=== PATIENT | female | born 1930 | race Caucasian/White ===

== ENCOUNTER 2016-11-04 23:07 | Emergency (ER) | payer MEDICARE, OTHER ==
--- NOTE | 2016-11-04 23:24 | EDM.PDOC ---
ED HPI GENERAL MEDICAL PROBLEM - General Chief Complaint: General Stated Complaint: fall, unable to bare wt to LLE Time Seen by Provider: 11/04/16 23:15 Source of Information: Reports: Patient, EMS, Family (Daughter), shelter records. 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 She apparently fell on her left side onto her wheelchair at about 19:00 hours in the residential with 1000 mg of Tylenol given at that time. She has had progressive left hip and leg pain at that time and has had more problems with weightbearing since the above fall, which was unwitnessed. 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 No recent surgery as below and secondary recent residential placement. There has been some postoperative left leg swelling, however the patient is currently on Lovenox Onset: today, sudden Onset Date: 11/04/16 Onset Time: 19:00 Duration: Constant Location: Reports: lower extremity, left. 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 (As above) - Related Data Allergies Allergy/AdvReac Type Severity Reaction Status Date / Time No Known Allergies Allergy Verified 11/04/16 23:11 Home Meds: Home Meds Acetaminophen [Tylenol Extra Strength] 1,000 mg PO TID PRN 11/04/16 [History] Aspirin [Halfprin] 81 mg PO BRK 11/04/16 [History] Calcium Carbonate 1,000 mg PO BID 11/04/16 [History] Cholecalciferol (Vitamin D3) [Vitamin D3] 2,000 unit PO DAILY 11/04/16 [History] Cranberry Conc/C/Bacill Coag [Cranberry Tablet] 1 tab PO DAILY 11/04/16 [History ] Enoxaparin Sodium 40 mg SQ DAILY 11/04/16 [History] Melatonin/Pyridoxine HCl (B6) [Melatonin 3 mg Tablet] 6 mg PO BEDTIME 11/04/16 [ History] Multivitamin with Minerals [Multivitamins with Minerals] 1 each PO DAILY [History] Polyethylene Glycol 3350 [MiraLAX] 17 gm PO DAILY 11/04/16 [History] Sertraline HCl [Zoloft] 125 mg PO DAILY 11/04/16 [History] Sulfamethoxazole/Trimethoprim [Bactrim 400-80 MG] 1 tab PO DAILY 11/04/16 [ History] atorvaSTATin Calcium [Atorvastatin Calcium] 10 mg PO BEDTIME 11/04/16 [History] traMADol [Ultram] 50 mg PO Q6H PRN 11/04/16 [History] traZODone HCl [Trazodone HCl] 25 mg PO BEDTIME 11/04/16 [History] Past Medical History HEENT History: Reports: Impaired vision, Other (see below). Denies: Allergic rhinitis, Cataract, Glaucoma, Hard of hearing, Macular degeneration, Retinal detachment Other HEENT History: Wears glasses Cardiovascular History: Reports: High cholesterol, Syncope. Denies: Afib, Aneurysm, Arrhythmia, Blood clots/VTE/DVT, CAD, Heart Failure, Heart murmur, Hypertension, FL, Pacemaker, PVD Respiratory History: Reports: Intubation, previous. Denies: Asthma, COPD, PE, Pneumothorax, Sleep apnea Gastrointestinal History: Reports: Chronic constipation. Denies: Celiac disease , Colon polyp, Diverticulosis, Gastritis, GERD, GI bleed, Hepatitis, Hiatal hernia, Inflammatory bowel disease, Irritable bowel syndrome, Jaundice, Pancreatitis Genitourinary History: Reports: UTI, recurrent, Other (see below). 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 Denies: Gout, Neck pain, chronic, RA, SLE Other Musculoskeletal History: Left hip fracture on 10/27/16 with surgery as below Neurological History: Reports: Alzheimers disease, CVA, Other (see below). Denies: Cerebral aneurysms, Concussion, Headaches, chronic, Head trauma, Migraines, MS, Parkinson's, Seizure Other Neuro History: Severe organic brain syndrome, previous lacunar CVA Psychiatric History: Reports: Alzheimers disease, Anxiety, Dementia, Depression , Other (see below). Denies: Abuse, victim of, ADD, ADHD, Psych Hospitalization (s), PTSD, Suicide attempt Other Psychiatric History: Chronic insomnia Endocrine/Metabolic History: Reports: Obesity/BMI 30+. Denies: Diabetes, type I , Diabetes, type II, Hypothyroidism, IDDM Hematologic History: Denies: Anemia, Blood transfusion(s), Iron deficiency Immunologic History: Reports: None. Denies: AIDS, HIV, SLE Oncologic (Cancer) History: Reports: Basal cell carcinoma, Other (see below). Denies: Hodgkin's Lymphoma, Leukemia, Lymphoma, Malignant melanoma, Non-Hodgkin' s Lymphoma, Squamous cell carcinoma Other Oncologic History: Possible basal cell carcinoma in the facial region versus actinic keratosis Dermatologic History: Reports: Other (see below) Other Dermatologic History: Actinic keratosis - Infectious Disease History Infectious Disease History: Reports: Chicken pox, Measles, Mumps. Denies: C- difficile, MRSA, VRE - Past Surgical History Head Surgeries/Procedures: Reports: None HEENT Surgical History: Reports: Oral surgery, Other (see below). Denies: Adenoidectomy, Cataract surgery, Eye surgery, Laser surgery, LASIK, Naso-sinus surgery, Tonsillectomy Other HEENT Surgeries/Procedures: Multiple teeth extraction Cardiovascular Surgical History: Reports: None. Denies: Varicose Respiratory Surgical History: Reports: None. Denies: Thoracentesis GI Surgical History: Reports: None. Denies: Appendectomy, Cholecystectomy, Colonoscopy, EGD, Hernia, abdominal, Hernia, inguinal, Hernia repair/other Female Surgical History: Reports: None. Denies: Breast biopsy, D&C, Hysterectomy, Tubal ligation Endocrine Surgical History: Reports: None. Denies: Thyroid biopsy Neurological Surgical History: Reports: None. Denies: C-Spine, Laminectomy, Lumbar spine, Sacral Spine, Spinal fusion, Vertebroplasty Musculoskeletal Surgical History: Reports: Hip replacement, Knee replacement, Other (see below). Denies: Arthroscopic procedure, Carpal tunnel, Ganglion cyst , ORIF Other Musculoskeletal Surgeries/Procedures:: Bilateral TKA, left hip hemiarthroplasty on 10/27/16 Oncologic Surgical History: Reports: None Dermatological Surgical History: Reports: Other (see below) Other Dermatological Surgeries/Procedures: Excision of possible facial basal cell carcinomas as above Social & Family History - Tobacco Use Smoking Status *Q: Never Smoker Smoking Cessation Information Provided To Patient: No Second Hand Smoke Exposure: No Second Hand Smoke Education Provided: No - Alcohol Use Alcohol Use History: No - Recreational Drug Use Recreational Drug Use: No Drug Use in Last 12 Months: No Recreational Drug Type: Denies: Amphetamines (Speed), Cocaine, Heroin, LSD (Acid ), Marijuana/Hashish, Morphine - Living Situation & Occupation Living situation: Reports: (07/22/12, 7 children), extended care facility ([facility] in [place] her left hip surgery with admission on ) ED ROS GENERAL - Review of Systems Review Of Systems: Unable To Obtain ED EXAM, GENERAL - Physical Exam Exam: See Below Exam Limited By: No limitations General Appearance: alert, WD/WN, no apparent distress Eye Exam: bilateral eye: EOMI, normal inspection (No nystagmus), PERRL Ears: normal external exam, normal canal, hearing grossly normal, normal TMs Nose: normal inspection, normal mucosa, no blood Throat/Mouth: Normal inspection, Normal lips, Normal gums, Normal oropharynx, Normal voice, No airway compromise. No: Normal teeth (Multiple Missing teeth), Dysphagia, Perioral cyanosis Head: atraumatic, normocephalic. No: facial swelling, facial tenderness Neck: normal inspection, supple, non-tender, full range of motion, carotid bruit (Mild Bilateral carotid bruits versus transmitted heart sounds). No: lymphadenopathy (L), lymphadenopathy (R), thyromegaly Respiratory/Chest: no respiratory distress, lungs clear, normal breath sounds, no accessory muscle use, chest non-tender. No: pleural rub, retractions Cardiovascular: normal peripheral pulses, regular rate, rhythm, no edema, no gallop, no JVD, no rub, systolic murmur (1/6 JAMIL at the aortic valve). No: gallop/S3, gallop/S4, friction rub Peripheral Pulses: 4+: radial (L), radial (R), dorsalis pedis (L), dorsalis pedis (R) GI/Abdominal: normal bowel sounds, soft, non tender, no organomegaly, no distention, no abnormal bruit, no mass. No: guarding (Female) Exam: Deferred Rectal (Female) Exam: Deferred Back Exam: normal inspection, full range of motion. No: CVA tenderness (L), CVA tenderness (R), muscle spasm Extremities: normal inspection, normal capillary refill, pedal edema (Trace bilateral pedal/pretibial edema), leg pain, limited range of motion (Mild palpation of the left hip with similar discomfort with range of motion, chary still in place at left hip surgical site with no signs of dehiscence or local signs of infection). No: Jackie's Sign Neurological: alert, normal reflexes (Negative Babinski's), confused (Stable confusion by her daughter's history) Psychiatric: anxious (Mild to moderate). No: depressed mood Skin Exam: Warm, Dry, No rash, Ecchymosis (Normal Postoperative ecchymosis around the left hip surgical site), Wound/incision (As above). No: Lymphangitis Lymphatic: no adenopathy Course - Vital Signs Last Recorded V/S: Last Vital Signs Temp 37.2 C 11/04/16 23:31 Pulse 87 11/04/16 23:31 Resp 20 11/04/16 23:31 BP 127/57 L 11/04/16 23:31 Pulse Ox 94 L 11/04/16 23:31 Vital Signs - 24 hr 11/04/16 23:31 Temperature [ 37.2 C Temporal] Pulse, 87 Peripheral [ Right Pulse Oximetry] Respiratory 20 Rate Blood Pressure 127/57 L [Right Upper Arm] O2 Sat by Pulse 94 L Oximetry - Orders/Labs/Meds Orders: Active Orders 24 hr Category Date Time Status Hip Min 2V or 3V w Pelvis Lt [CR] Stat Exams 11/04/16 23:35 Taken Obtain Past Medical Record [OM.PC] Routine Oth 11/04/16 23:24 Active Labs: None Meds: None - Radiology Interpretation Free Text/Narrative:: X-rays of the left hip, 2 views, with additional one view of the pelvis shows mild bilateral coxarthrosis with status post left hip hemiarthroplasty with no evidence of fracture, loosening, etc. 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 Maintain strict fall precautions as before 2. Update regular provider in the a.m. concerning patient's condition. Note that her daughter is requesting review of her current medical therapy and plans to call him later in that day 3. BenGay or equivalent, heating pad, and/or ice packs as directed. - Problem List & Annotations (1) Contusion SNOMED Code(s): 227651669 Code(s): T14.8 - OTHER INJURY OF UNSPECIFIED BODY REGION Status: Acute Priority: High Current Visit: Yes Onset Date: 11/04/16 Annotation/Comment: : Mild left hip contusion from a minor fall with no evidence of further injury to her recent left hip hemiarthroplasty. Continue physical therapy as before. The patient's daughter is somewhat concerned about her current medical therapy and will discuss this further with the patient's new primary care provider. Continue strict fall precautions Qualifiers: Encounter type: initial encounter Contusion area: hip Laterality: left Qualified Code(s): S70.02XA - Contusion of left hip, initial encounter (2) Osteoarthritis SNOMED Code(s): 606914112 Code(s): M19.90 - UNSPECIFIED OSTEOARTHRITIS, UNSPECIFIED SITE Status: Chronic Priority: Medium Current Visit: Yes Annotation/Comment:: Otherwise stable by history Qualifiers: Osteoarthritis location: multiple joints Osteoarthritis type: primary Qualified Code(s): M15.0 - Primary generalized (osteo)arthritis (3) Organic brain syndrome SNOMED Code(s): 8537104 Code(s): F09 - UNSP MENTAL DISORDER DUE TO KNOWN PHYSIOLOGICAL CONDITION Status: Chronic Priority: Medium Current Visit: Yes Annotation/Comment:: Stable by patient history (4) Hyperlipidemia SNOMED Code(s): 74631210 Code(s): E78.5 - HYPERLIPIDEMIA, UNSPECIFIED Status: Chronic Priority: Medium Current Visit: Yes Annotation/Comment:: Currently under therapy Qualifiers: Hyperlipidemia type: unspecified Qualified Code(s): E78.5 - Hyperlipidemia , unspecified (5) Mixed anxiety depressive disorder SNOMED Code(s): 595300718 Code(s): F41.8 - OTHER SPECIFIED ANXIETY DISORDERS Status: Chronic Priority: Medium Current Visit: Yes Annotation/Comment:: Moderate control based on today's exam. Observe closely by her regular provider - Problem List Review Problem List Initiated/Reviewed/Updated: Yes - My Orders Last 24 Hours: My Active Orders 11/04/16 23:24 Obtain Past Medical Record [OM.PC] Routine 11/04/16 23:35 Hip Min 2V or 3V w Pelvis Lt [CR] Stat - Assessment/Plan Last 24 Hours: My Active Orders 11/04/16 23:24 Obtain Past Medical Record [OM.PC] Routine 11/04/16 23:35 Hip Min 2V or 3V w Pelvis Lt [CR] Stat Assessment:: As above Plan: As above. Extensive precautions were given to the patient's daughter, who is in agreement with the treatment plan. See Patient Instructions for further treatment and plan.
[2016-11-04 23:42] VITALS: BP 127/57
== END 2016-11-05 01:25 ==
LOC: LL.ED 23:07
DX: S70.02XA Contusion of left hip, initial encounter (principal); Z79.82 Long term (current) use of aspirin; Z79.899 Other long term (current) drug therapy; R78.5 Finding of other psychotropic drug in blood; K59.00 Constipation, unspecified; M15.0 Primary generalized (osteo)arthritis; G30.9 Alzheimer's disease, unspecified; F02.80 Dementia in other diseases classified elsewhere, unspecified severity, without behavioral disturbance, psychotic disturbance, mood disturbance, and anxiety; Z86.73 Personal history of transient ischemic attack (TIA), and cerebral infarction without residual deficits; F41.8 Other specified anxiety disorders; G47.00 Insomnia, unspecified; E66.9 Obesity, unspecified; Z68.30 Body mass index [BMI] 30.0-30.9, adult; Z96.649 Presence of unspecified artificial hip joint; Z96.659 Presence of unspecified artificial knee joint; W05.0XXA Fall from non-moving wheelchair, initial encounter; E78.5 Hyperlipidemia, unspecified; F09 Unspecified mental disorder due to known physiological condition
CPT/HCPCS: 99283; 99285

== ENCOUNTER 2016-11-22 06:24 | Emergency (ER) | payer MEDICARE, OTHER ==
--- NOTE | 2016-11-22 06:44 | EDM.PDOC ---
ED HPI Trauma - General Chief Complaint: Lower Extremity Injury/Pain Stated Complaint: left hip pain Time Seen by Provider: 11/22/16 06:40 Source: Reports: Patient, Family (Daughter), long term records, Old records ( [facility] EMR. No paper hospital chart available.) History Limitations: Reports: Altered mental status - History of Present Illness INITIAL COMMENTS - FREE TEXT/NARRATIVE: The patient was brought to the emergency room via ambulance with disability examiner accompaniment with no treatment in route. Per limited prison records the patient had a minor fall in the dining room at about 21:10 hours with no significant complaints at that time. Patient was given 650 mg of Tylenol at 19: 18 hours yesterday evening with additional 50 mg of Ultram given at 21:00 hours. She apparently did not complain of any discomfort until about 04:50 a.m. this morning with one episode of projectile emesis at that time. She was given 50 mg of tramadol at 05:27 hours. She has been experiencing some nonspecific burping sensation but no further emesis, abdominal pain, etc.. No apparent previous significant head injury, loss of conscious, change in mental status, neck/back pain, or other complaints or injury. Note this patient is a poor historian secondary to her baseline organic brain syndrome. No apparent problems yesterday evening at supper. Last Lovenox dose at 8 a.m. yesterday morning. Physical Therapy has apparently been progressing well with no recent chest pain, anginal complaints, etc. The patient also has not had any recent fever, cough, wheezing, dyspnea, etc.. Symptom Onset Date: 11/21/16 Symptom Onset Time: 21:10 Occurred When: this evening Occurred Where: other (long term) Method of Injury: fall Severity: moderate Pain/Injury Location: Reports: lower extremity, left. Denies: head, face, mouth , neck, chest, abdomen, pelvis, back, upper extremity, right, upper extremity, left, lower extremity, right Consciousness: Reports: no loss of consciousness Associated Symptoms: Reports: confusion (Stable baseline severe), nausea/ vomiting, trouble walking. Denies: abdominal pain, chest pain, dizziness, seizures, shortness of breath Allergies/ADRs: Allergies No Known Allergies Allergy (Verified 11/22/16 06:34) Home Medications: Ambulatory Orders Aspirin [Halfprin] 81 mg PO BRK 11/04/16 [Confirmed 11/22/16] Calcium Carbonate 1,000 mg PO BID 11/04/16 [Confirmed 11/22/16] Cranberry Conc/C/Bacill Coag [Cranberry Tablet] 1 tab PO DAILY 11/04/16 [ Confirmed 11/22/16] Enoxaparin Sodium 40 mg SQ DAILY 11/04/16 [Confirmed 11/22/16] Melatonin/Pyridoxine HCl (B6) [Melatonin 3 mg Tablet] 6 mg PO BEDTIME 11/04/16 [ Confirmed 11/22/16] Multivitamin with Minerals [Multivitamins with Minerals] 1 each PO DAILY [Confirmed 11/22/16] Polyethylene Glycol 3350 [MiraLAX] 17 gm PO DAILY 11/04/16 [Confirmed 11/22/16] Sertraline HCl [Zoloft] 125 mg PO DAILY 11/04/16 [Confirmed 11/22/16] Sulfamethoxazole/Trimethoprim [Bactrim 400-80 MG] 1 tab PO DAILY 11/04/16 [ Confirmed 11/22/16] atorvaSTATin Calcium [Atorvastatin Calcium] 10 mg PO BEDTIME 11/04/16 [ Confirmed 11/22/16] traMADol [Ultram] 50 mg PO Q6H PRN 11/04/16 [Confirmed 11/22/16] traZODone HCl [Trazodone HCl] 25 mg PO BEDTIME 11/04/16 [Confirmed 11/22/16] Acetaminophen 650 mg PO Q4H PRN 11/22/16 [Confirmed 11/22/16] Acetaminophen 650 mg PO TID 11/22/16 [Confirmed 11/22/16] Bisacodyl [Dulcolax] 10 mg PO DAILY PRN 11/22/16 [Confirmed 11/22/16] Bisacodyl [Dulcolax] 10 mg RECTAL DAILY 11/22/16 [Confirmed 11/22/16] Methyl Salicylate/Menthol [Muscle Rub] 1 applic TOP ASDIRECTED PRN 11/22/16 [ Confirmed 11/22/16] Past Medical History HEENT History: Reports: Impaired vision, Other (see below). Denies: Allergic rhinitis, Cataract, Glaucoma, Hard of hearing, Macular degeneration, Retinal detachment Other HEENT History: Wears glasses Cardiovascular History: Reports: High cholesterol, Syncope. Denies: Afib, Aneurysm, Arrhythmia, Blood clots/VTE/DVT, CAD, Heart Failure, Heart murmur, Hypertension, [place], Pacemaker, PVD Respiratory History: Reports: Intubation, previous. Denies: Asthma, COPD, PE, Pneumothorax, Sleep apnea Gastrointestinal History: Reports: Chronic constipation. Denies: Celiac disease , Colon polyp, Diverticulosis, Gastritis, GERD, GI bleed, Hepatitis, Hiatal hernia, Inflammatory bowel disease, Irritable bowel syndrome, Jaundice, Pancreatitis Genitourinary History: Reports: UTI, recurrent, Other (see below). Denies: Chronic renal insuffiency, Renal calculus, STD, Urinary incontinence Other Genitourinary History: Recurrent UTIs with current antibiotic uroprophylaxis SPOON MAKER History: Reports: , Spontaneous : 8 Para: 7 (Full term without complications during pregnancies or deliveries) Other OB/BYN History: Menopause in her 50s, SAB in first trimester without procedures required Musculoskeletal History: Reports: Arthritis, Back pain, chronic, Fracture, Osteoarthritis, Other (see below). Denies: Gout, Neck pain, chronic, RA, SLE Other Musculoskeletal History: Left hip fracture on 10/27/16 with surgery as below Neurological History: Reports: Alzheimers disease, CVA, Other (see below). Denies: Cerebral aneurysms, Concussion, Headaches, chronic, Head trauma, Migraines, MS, Parkinson's, Seizure Other Neuro History: Severe organic brain syndrome, previous lacunar CVA Psychiatric History: Reports: Alzheimers disease, Anxiety, Dementia, Depression , Other (see below). Denies: Abuse, victim of, ADD, ADHD, Psych Hospitalization (s), PTSD, Suicide attempt Other Psychiatric History: Chronic insomnia Endocrine/Metabolic History: Reports: Obesity/BMI 30+. Denies: Diabetes, type I , Diabetes, type II, Hypothyroidism, IDDM Hematologic History: Reports: None. Denies: Anemia, Blood transfusion(s), Iron deficiency Immunologic History: Reports: None. Denies: AIDS, HIV, SLE Oncologic (Cancer) History: Reports: Basal cell carcinoma, Other (see below). Denies: Hodgkin's Lymphoma, Leukemia, Lymphoma, Malignant melanoma, Non-Hodgkin' s Lymphoma, Squamous cell carcinoma Other Oncologic History: Possible basal cell carcinoma in the facial region versus actinic keratosis Dermatologic History: Reports: Other (see below) Other Dermatologic History: Actinic keratosis - Infectious Disease History Infectious Disease History: Reports: Chicken pox, Measles, Mumps. Denies: C- difficile, MRSA, VRE - Past Surgical History Head Surgeries/Procedures: Reports: None HEENT Surgical History: Reports: Oral surgery, Other (see below). Denies: Adenoidectomy, Cataract surgery, Eye surgery, Laser surgery, LASIK, Naso-sinus surgery, Tonsillectomy Other HEENT Surgeries/Procedures: Multiple teeth extraction Cardiovascular Surgical History: Reports: None. Denies: Varicose Respiratory Surgical History: Reports: None. Denies: Thoracentesis GI Surgical History: Reports: None. Denies: Appendectomy, Cholecystectomy, Colonoscopy, EGD, Hernia, abdominal, Hernia, inguinal, Hernia repair/other Female Surgical History: Reports: None. Denies: Breast biopsy, D&C, Hysterectomy, Tubal ligation Endocrine Surgical History: Reports: None. Denies: Thyroid biopsy Neurological Surgical History: Reports: None. Denies: C-Spine, Laminectomy, Lumbar spine, Sacral Spine, Spinal fusion, Vertebroplasty Musculoskeletal Surgical History: Reports: Hip replacement, Knee replacement, Other (see below). Denies: Arthroscopic procedure, Carpal tunnel, Ganglion cyst , ORIF Other Musculoskeletal Surgeries/Procedures:: Bilateral TKA, left hip hemiarthroplasty on 10/27/16 Oncologic Surgical History: Reports: None Dermatological Surgical History: Reports: Other (see below) Other Dermatological Surgeries/Procedures: Excision of possible facial basal cell carcinomas as above Social & Family History - Tobacco Use Smoking Status *Q: Never Smoker Smoking Cessation Information Provided To Patient: No Second Hand Smoke Exposure: No Second Hand Smoke Education Provided: No - Alcohol Use Alcohol Use History: No - Recreational Drug Use Recreational Drug Use: No Drug Use in Last 12 Months: No Recreational Drug Type: Denies: Amphetamines (Speed), Cocaine, Heroin, Inhalants (Glues, Solvents, Aerosols), LSD (Acid), Marijuana/Hashish, Methamphetamine - Living Situation & Occupation Living situation: Reports: (07/22/12, 7 children), extended care facility ([facility] in [place] after her left hip surgery with admission on 11/01/16) Occupation: retired (retired [employer] ) Review of Systems - Review of Systems Review Of Systems: ROS reveals no pertinent complaints other than HPI. Trauma Exam - Physical Exam Exam: See Below Exam Limited By: Altered mental status General Appearance: Reports: alert, anxious (Moderate), mild distress Head: Reports: atraumatic, normocephalic. Denies: Roberts's Sign, sinus tenderness, facial tenderness, raccoon eyes Eyes: bilateral eye: EOMI, normal inspection (No nystagmus), PERRL Ears: Reports: normal external exam, normal canal, hearing grossly normal, normal TMs Nose: Reports: normal inspection, normal mucousa, no blood Throat/Mouth: Reports: Normal inspection, Normal lips, Normal teeth, Normal gums , Normal oropharynx, Normal voice, No airway compromise Neck: Reports: non-tender, full range of motion, normal alignment, normal inspection. Denies: muscle spasm Respiratory Exam: Reports: no respiratory distress, lungs clear, normal breath sounds, no accessory muscle use, chest non-tender. Denies: pleural rub, retractions Cardiovascular: Reports: normal peripheral pulses, regular rate, rhythm, no edema, no gallop, no JVD, no murmur, no rub. Denies: gallop/S3, gallop/S4, friction rub GI/Abdominal: Reports: normal bowel sounds, soft, non tender, no organomegaly, no distention, no abnormal bruit, no mass. Denies: guarding (Female) Exam: Deferred Rectal (Female) Exam: Deferred Back: Reports: full range of motion, normal inspection, non-tender. Denies: CVA tenderness (R), CVA tenderness (L), muscle spasm Extremities: Reports: pelvis stable, pain with movement (Moderate to severe with movement and palpation), pedal edema (Moderate swelling of the entire left femur with mild ecchymosis over the lateral proximal left femur with some outward rotation and shortening), tenderness (As above), unable to bear weight, other (2/4 pedal pulses) Neurologic: Reports: other (Negative Babinski's, stable moderate to severe confusion/organic brain syndrome) Skin: Reports: Ecchymosis - Romeo Coma Score Best Eye Response (Hunker): (4) open spontaneously Best Verbal Response (Romeo): (4) confused conversation (Baseline) Best Motor Response (Hunker): (6) obeys commands Hunker Total: 14 Course - Vital Signs Last Recorded V/S: Last Vital Signs Temp 37.3 C 11/22/16 06:30 Pulse 92 11/22/16 08:36 Resp 14 11/22/16 08:36 BP 170/71 H 11/22/16 08:36 Pulse Ox 98 11/22/16 08:36 Vital Signs - 24 hr 11/22/16 11/22/16 11/22/16 06:30 06:45 07:00 Temperature [ 37.3 C Temporal] Pulse, 89 90 91 Peripheral [ Right Pulse Oximetry] Respiratory 20 18 18 Rate Blood Pressure 165/70 H 180/75 H [Right Upper Arm] O2 Sat by Pulse 96 96 Oximetry O2 Sat by Pulse Oximetry [ Nasal Cannula] 11/22/16 11/22/16 11/22/16 07:08 07:15 07:30 Temperature [ Temporal] Pulse, 90 90 Peripheral [ Right Pulse Oximetry] Respiratory 18 15 Rate Blood Pressure 177/74 H 163/67 H [Right Upper Arm] O2 Sat by Pulse 95 99 Oximetry O2 Sat by Pulse 98 Oximetry [ Nasal Cannula] 11/22/16 11/22/16 08:22 08:36 Temperature [ Temporal] Pulse, 99 92 Peripheral [ Right Pulse Oximetry] Respiratory 20 14 Rate Blood Pressure 165/73 H 170/71 H [Right Upper Arm] O2 Sat by Pulse 98 98 Oximetry O2 Sat by Pulse Oximetry [ Nasal Cannula] - Orders/Labs/Meds Orders: Active Orders 24 hr Category Date Time Status Cardiac Monitoring [RC] . DIRECTED Care 11/22/16 06:51 Active Oxygen Therapy, ED [RC] CONTINUOUS Care 11/22/16 07:08 Active Peripheral IV Care [RC] . DIRECTED Care 11/22/16 06:47 Active Abdomen 1V Flat [CR] Stat Exams 11/22/16 06:46 Taken Hip Min 2V or 3V w Pelvis Lt [CR] Stat Exams 11/22/16 06:45 Taken Sodium Chloride 0.9% [Saline Flush] Med 11/22/16 06:46 Active 10 ml FLUSH ASDIRECTED PRN Obtain Past Medical Record [OM.PC] Routine Oth 11/22/16 06:44 Active Peripheral IV Insertion Adult [OM.PC] Routine Oth 11/22/16 06:47 Ordered Medication Orders Sodium Chloride (Saline Flush) 10 ml FLUSH ASDIRECTED PRN PRN Reason: Keep Vein Open Labs: Laboratory Tests 11/22/16 11/22/16 11/22/16 Range/Units 07:00 07:00 07:00 WBC 9.8 (4.0-10.2) K/uL RBC 4.10 (3.77-5.09) M/uL Hgb 12.2 (11.7-15.5) g/dL Hct 38.5 (34.0-46.0) % MCV 93.9 (84.0-98.0) fL MCH 29.8 (28.2-33.3) pg MCHC 31.7 (31.7-36.0) g/dL RDW 14.4 H (11.2-14.1) % Plt Count 494 H (150-350) K/uL Neut % (Auto) 89.3 H (45.0-80.0) % Lymph % (Auto) 5.2 L (10.0-50.0) % Cavalier % (Auto) 5.3 (2.0-14.0) % Eos % (Auto) 0.0 (0.0-5.0) % Baso % (Auto) 0.2 (0.0-2.0) % Neut # (Auto) 8.79 H (1.40-7.00) K/uL Lymph # (Auto) 0.51 (0.50-3.50) K/uL Cavalier # (Auto) 0.52 (0.00-1.00) K/uL Eos # (Auto) 0.00 (0.00-0.50) K/uL Baso # (Auto) 0.02 (0.00-0.20) K/uL PT 10.8 (9.8-11.7) SEC INR 1.0 APTT 27.5 (23.5-30.0) SEC Sodium (136-145) mmol/L Potassium (3.5-5.1) mmol/L Chloride (98-107) mmol/L Carbon Dioxide (21.0-32.0) mmol/L BUN (7-18) mg/dL Creatinine (0.51-1.17) mg/dL Est Cr Clr Drug Dosing Estimated GFR (MDRD) mL/min Glucose (74-106) mg/dL Calcium (8.5-10.1) mg/dL Total Bilirubin (0.2-1.0) mg/dL AST (15-37) U/L ALT (12-78) U/L Alkaline Phosphatase (46-116) IU/L Total Protein (6.4-8.2) g/dL Albumin (3.4-5.0) g/dL Amylase 19 L (25-115) U/L Lipase 111 (73-393) U/L 11/22/16 Range/Units 07:00 WBC (4.0-10.2) K/uL RBC (3.77-5.09) M/uL Hgb (11.7-15.5) g/dL Hct (34.0-46.0) % MCV (84.0-98.0) fL MCH (28.2-33.3) pg MCHC (31.7-36.0) g/dL RDW (11.2-14.1) % Plt Count (150-350) K/uL Neut % (Auto) (45.0-80.0) % Lymph % (Auto) (10.0-50.0) % Cavalier % (Auto) (2.0-14.0) % Eos % (Auto) (0.0-5.0) % Baso % (Auto) (0.0-2.0) % Neut # (Auto) (1.40-7.00) K/uL Lymph # (Auto) (0.50-3.50) K/uL Cavalier # (Auto) (0.00-1.00) K/uL Eos # (Auto) (0.00-0.50) K/uL Baso # (Auto) (0.00-0.20) K/uL PT (9.8-11.7) SEC INR APTT (23.5-30.0) SEC Sodium 137 (136-145) mmol/L Potassium 3.6 (3.5-5.1) mmol/L Chloride 100 (98-107) mmol/L Carbon Dioxide 29.3 (21.0-32.0) mmol/L BUN 17 (7-18) mg/dL Creatinine 0.69 (0.51-1.17) mg/dL Est Cr Clr Drug Dosing TNP Estimated GFR (MDRD) > 60 mL/min Glucose 146 H (74-106) mg/dL Calcium 9.3 (8.5-10.1) mg/dL Total Bilirubin 0.4 (0.2-1.0) mg/dL AST 25 (15-37) U/L ALT 22 (12-78) U/L Alkaline Phosphatase 102 (46-116) IU/L Total Protein 8.1 (6.4-8.2) g/dL Albumin 3.6 (3.4-5.0) g/dL Amylase (25-115) U/L Lipase (73-393) U/L Meds: Medications Generic Name Dose Route Start Last Admin Trade Name Freq PRN Reason Stop Dose Admin Sodium Chloride 10 ml 11/22/16 06:46 Saline Flush FLUSH ASDIRECTED PRN Keep Vein Open Discontinued Medications Generic Name Dose Route Start Last Admin Trade Name Freq PRN Reason Stop Dose Admin Hydromorphone HCl 1 mg 11/22/16 06:47 11/22/16 07:01 Dilaudid IVPUSH 11/22/16 06:48 1 mg ONETIME ONE Administration Ondansetron HCl 4 mg 11/22/16 06:47 11/22/16 07:01 Zofran IVPUSH 11/22/16 06:48 4 mg ONETIME ONE Administration - Radiology Interpretation Free Text/Narrative:: front desk monitor shows a normal sinus rhythm in the 80s to 90s with no ectopy or arrhythmia X-rays of the abdomen, one view flat, shows complete view of the pelvis with no evidence of pelvic fracture with large right upper quadrant calcification consistent with cholelithiasis. Additional moderate diffuse stool and mild to moderate increased bowel gaseous pattern also present. X-rays of the left hip, including one view the pelvis and lateral hip, shows somewhat incomplete view of the pelvis with status post TEP and moderately angulated and mildly displaced femur fracture beginning just under the inferior aspect of the TEP Departure - Departure Time of Disposition: 08:45 Disposition: DC/Tfer to Acute Hospital 02 Condition: fair Clinical Impression: Fracture of femur, Mixed anxiety depressive disorder, Organic brain syndrome Osteoarthritis Qualifiers: Osteoarthritis location: multiple joints Osteoarthritis type: primary Qualified Code(s): M15.0 - Primary generalized (osteo)arthritis Hyperlipidemia Qualifiers: Hyperlipidemia type: unspecified Qualified Code(s): E78.5 - Hyperlipidemia, unspecified Cholelithiasis Qualifiers: Cholelithiasis location: gallbladder Cholecystitis presence: without cholecystitis Biliary obstruction: without biliary obstruction Qualified Code(s) : K80.20 - Calculus of gallbladder without cholecystitis without obstruction Referrals: Jackson Shoemaker MD [Primary Care Provider] - Forms: ED Department Discharge, Interfacility Transfer EMTALA - Problem List & Annotations (1) Fracture of femur SNOMED Code(s): 78711226 Code(s): S72.90XA - UNSP FRACTURE OF UNSP FEMUR, INIT ENCNTR FOR CLOSED FRACTURE Status: Acute Priority: High Current Visit: Yes Onset Date: Annotation/Comment:: IV Zofran and IV Dilaudid given to the patient prior to injecting the above x-rays. Telephone consultation at 07:[address] Amanda, os closed at [facility] in [place], who does accept the patient for further treatment and evaluation, orthopedic consultation, etc. No further treatment recommendations given. Oxygen supplied after administration of IV Dilaudid as above as precaution measure with brief hypoxia secondary to sedation. Adequate control with above therapy. No complications. Note that the patient was on Ultram prior to her original fall in October with history of recurrent falls and baseline organic brain syndrome. Secondary to this history narcotic medications, Ultram, etc. should be used with discretion and not on a long-term basis with this extensively discussed with the patient's daughter. Note elevated BPs in the ER with no previous history of hypertension (2) Cholelithiasis SNOMED Code(s): 358421244 Code(s): K80.20 - CALCULUS OF GALLBLADDER W/O CHOLECYSTITIS W/O OBSTRUCTION Status: Chronic Priority: Medium Current Visit: Yes Onset Date: ~ Annotation/Comment:: Incidental cholelithiasis by today's x-rays as above. Despite one episode of emesis earlier today as above with no direct evidence acute cholecystitis, including no leukocytosis, elevated LFTs, and otherwise normal amylase and lipase today. Continue to observe closely by the accepting physicians and regular providers Qualifiers: Cholelithiasis location: gallbladder Cholecystitis presence: without cholecystitis Biliary obstruction: without biliary obstruction Qualified Code(s): K80.20 - Calculus of gallbladder without cholecystitis without obstruction (3) Osteoarthritis SNOMED Code(s): 456989672 Code(s): M19.90 - UNSPECIFIED OSTEOARTHRITIS, UNSPECIFIED SITE Status: Chronic Priority: Medium Current Visit: Yes Annotation/Comment:: Otherwise stable by history Qualifiers: Osteoarthritis location: multiple joints Osteoarthritis type: primary Qualified Code(s): M15.0 - Primary generalized (osteo)arthritis (4) Hyperlipidemia SNOMED Code(s): 57265073 Code(s): E78.5 - HYPERLIPIDEMIA, UNSPECIFIED Status: Chronic Priority: Medium Current Visit: Yes Annotation/Comment:: Currently under therapy Qualifiers: Hyperlipidemia type: unspecified Qualified Code(s): E78.5 - Hyperlipidemia , unspecified (5) Mixed anxiety depressive disorder SNOMED Code(s): 195633740 Code(s): F41.8 - OTHER SPECIFIED ANXIETY DISORDERS Status: Chronic Priority: Medium Current Visit: Yes Annotation/Comment:: Stable by patient history. Continue to observe closely by her regular provider (6) Organic brain syndrome SNOMED Code(s): 2139925 Code(s): F09 - UNSP MENTAL DISORDER DUE TO KNOWN PHYSIOLOGICAL CONDITION Status: Chronic Priority: Medium Current Visit: Yes Annotation/Comment:: Stable by patient history (7) Osteoarthritis SNOMED Code(s): 586265752 Code(s): M19.90 - UNSPECIFIED OSTEOARTHRITIS, UNSPECIFIED SITE Status: Chronic Priority: Medium Current Visit: No Annotation/Comment:: Otherwise stable by history Qualifiers: Osteoarthritis location: multiple joints Osteoarthritis type: primary Qualified Code(s): M15.0 - Primary generalized (osteo)arthritis - Problem List Review Problem List Initiated/Reviewed/Updated: Yes - My Orders Last 24 Hours: My Active Orders 11/22/16 06:44 Obtain Past Medical Record [OM.PC] Routine 11/22/16 06:45 Hip Min 2V or 3V w Pelvis Lt [CR] Stat 11/22/16 06:46 Abdomen 1V Flat [CR] Stat Sodium Chloride 0.9% [Saline Flush] 10 ml FLUSH ASDIRECTED PRN 11/22/16 06:47 Peripheral IV Care [RC] . DIRECTED Peripheral IV Insertion Adult [OM.PC] Routine 11/22/16 06:51 Cardiac Monitoring [RC] . DIRECTED 11/22/16 07:08 Oxygen Therapy, ED [RC] CONTINUOUS - Assessment/Plan Last 24 Hours: My Active Orders 11/22/16 06:44 Obtain Past Medical Record [OM.PC] Routine 11/22/16 06:45 Hip Min 2V or 3V w Pelvis Lt [CR] Stat 11/22/16 06:46 Abdomen 1V Flat [CR] Stat Sodium Chloride 0.9% [Saline Flush] 10 ml FLUSH ASDIRECTED PRN 11/22/16 06:47 Peripheral IV Care [RC] . DIRECTED Peripheral IV Insertion Adult [OM.PC] Routine 11/22/16 06:51 Cardiac Monitoring [RC] . DIRECTED 11/22/16 07:08 Oxygen Therapy, ED [RC] CONTINUOUS Assessment:: As above Plan: As above. Extensive precautions were given to the patient and her daughter, who are in agreement with the treatment plan. Ambulance transfer with disability examiner accompaniment
[2016-11-22] MEDS ORDERED: Sodium Chloride 0.9% 10 ML Syringe FLUSH PRN (06:46)
[2016-11-22] MEDS ORDERED: Ondansetron 4 MG/2 ML SDV IVPUSH ONE (06:47)
[2016-11-22] MEDS ORDERED: HYDROmorphone 1 MG/ML Syringe IVPUSH ONE (06:47)
[2016-11-22 07:28] LABS: CHLORIDE,CL 100 mmol/L (98-107); SODIUM,NA 137 mmol/L (136-145)
[2016-11-22 08:37] VITALS: BP 170/71
== END 2016-11-22 08:50 ==
LOC: LL.ED 06:24
DX: S72.92XA Unspecified fracture of left femur, initial encounter for closed fracture (principal); K80.20 Calculus of gallbladder without cholecystitis without obstruction; F41.8 Other specified anxiety disorders; M15.0 Primary generalized (osteo)arthritis; F09 Unspecified mental disorder due to known physiological condition; E78.00 Pure hypercholesterolemia, unspecified; G30.9 Alzheimer's disease, unspecified; F02.80 Dementia in other diseases classified elsewhere, unspecified severity, without behavioral disturbance, psychotic disturbance, mood disturbance, and anxiety; E78.5 Hyperlipidemia, unspecified; Z79.899 Other long term (current) drug therapy; Z79.01 Long term (current) use of anticoagulants; Z86.73 Personal history of transient ischemic attack (TIA), and cerebral infarction without residual deficits; Z90.49 Acquired absence of other specified parts of digestive tract; W19.XXXA Unspecified fall, initial encounter
CPT/HCPCS: 36415; 73502; 74000; 80053; 82150; 83690; 85025; 85610; 85730; 96374; 96375; 99285; J1170; J2405; 99284

== ENCOUNTER → 2019-06-17 | Outpatient (CLI) | payer MEDICARE, MEDICAID, OTHER | LOC: LL.DI 11:03 | PROVIDERS: ATTEND Family Medicine | DX: R13.10 Dysphagia, unspecified (principal) | CPT/HCPCS: 74230; 92526-GN; 92611-GN ==